=== PATIENT | female | born 1965 | race Caucasian/White ===

== ENCOUNTER 2019-06-17 14:05 | Emergency (ER) | payer BC ==
[2019-06-17 14:24] VITALS: BP 159/95; PULSE 80
--- NOTE | 2019-06-17 15:19 | CR ---
[id number] RAD/RAD Tibia Fibula Right; 2176-0153 RAD/RAD Foot Right 3V Min; [id number] RAD/RAD Ankle Right 3V Min EXAM: RAD Ankle Right 3V Min, RAD Foot Right 3V Min, RAD Tibia Fibula Right INDICATION: INJURY. COMPARISON: None. DISCUSSION: Acute mildly displaced oblique lateral malleolus fracture. Significant soft tissue swelling within the ankle most pronounced anteriorly and laterally. Possible tiny avulsion fracture off the proximal fibular head. No dislocation or other osseous abnormalities identified. IMPRESSION: 1. Acute mildly displaced oblique distal fibula fracture. 2. Possible tiny essentially nondisplaced avulsion fracture off the proximal fibular head. Brown Pantoja MD 06/17/19 1518 Thank you for allowing us to participate in the care of your patient.
--- NOTE | 2019-06-17 15:25 | EDM.PDOC ---
ED HPI GENERAL MEDICAL PROBLEM - General Chief Complaint: Lower Extremity Injury/Pain Stated Complaint: RIGHT ANKLE PAIN Time Seen by Provider: 06/17/19 15:04 Source of Information: Reports: Patient History Limitations: Reports: No Limitations - History of Present Illness INITIAL COMMENTS - FREE TEXT/NARRATIVE: Patient is a 54-year-old female who presents to the emergency department this afternoon via private vehicle with a complaint of right lower extremity pain. Patient states that she was riding a horse in a field close by and the horse fell, landing on her right lower extremity. Patient was able to ambulate approximately quarter mile to her vehicle and drove herself to the emergency department. Upon presentation, patient has edema to right ankle. Patient denies head injury, chest pain, shortness of breath, abdominal pain, back injury or neck injury, hip pain, loss of consciousness, or any other injury. Onset: Today, Sudden Onset Date: 06/17/19 Onset Time: 13:00 Duration: Hour(s): Location: Reports: Lower Extremity, Right Quality: Reports: Ache Severity: Mild Improves with: Reports: None Worsens with: Reports: Movement Context: Reports: Trauma Associated Symptoms: Reports: No Other Symptoms Right Ankle Pain Score (Numeric/FACES): 7 - Related Data Allergies Allergy/AdvReac Type Severity Reaction Status Date / Time Sulfa (Sulfonamide Allergy Cannot Verified 06/17/19 14:17 Antibiotics) Remember Home Meds: Home Meds Rosuvastatin Calcium 10 mg PO DAILY 02/21/18 [History] Venlafaxine HCl [Venlafaxine HCl ER] 75 mg PO DAILY 02/21/18 [History] Diclofenac Sodium 75 mg PO BID 06/17/19 [History] Past Medical History - Past Health History Medical/Surgical History: Denies Medical/Surgical History HEENT History: Reports: Impaired Vision Cardiovascular History: Reports: High Cholesterol Gastrointestinal History: Reports: None Genitourinary History: Reports: None HAM[employer]TER History: Reports: Psychiatric History: Reports: Depression - Infectious Disease History Infectious Disease History: Reports: Chicken Pox - Past Surgical History HEENT Surgical History: Reports: None Cardiovascular Surgical History: Reports: None GI Surgical History: Reports: Colonoscopy Female Surgical History: Reports: Hysterectomy Social & Family History - Tobacco Use Smoking Status *Q: Never Smoker - Caffeine Use Caffeine Use: Reports: Coffee - Recreational Drug Use Recreational Drug Use: No Review of Systems - Review of Systems Review Of Systems: Comprehensive ROS is negative, except as noted in HPI. Constitutional: Reports: No Symptoms Eyes: Reports: No Symptoms Ears: Reports: No Symptoms Nose: Reports: No Symptoms Mouth/Throat: Reports: No Symptoms Respiratory: Reports: No Symptoms Cardiovascular: Reports: No Symptoms GI/Abdominal: Reports: No Symptoms Genitourinary: Reports: No Symptoms Musculoskeletal: Reports: Leg Pain (Right), Joint Swelling Skin: Reports: No Symptoms Neurological: Reports: No Symptoms Psychiatric: Reports: No Symptoms ED EXAM, GENERAL - Physical Exam Exam: See Below Exam Limited By: No Limitations General Appearance: Alert, WD/WN, No Apparent Distress Eye Exam: Bilateral Eye: Normal Inspection Nose: Normal Inspection, No Blood Throat/Mouth: Normal Inspection, Normal Oropharynx, No Airway Compromise Head: Atraumatic, Normocephalic Neck: Normal Inspection, Supple, Non-Tender, Full Range of Motion Respiratory/Chest: No Respiratory Distress, Lungs Clear, Normal Breath Sounds, No Accessory Muscle Use, Chest Non-Tender Cardiovascular: Regular Rate, Rhythm, No Murmur Peripheral Pulses: 2+: Popliteal (L), Popliteal (R), Posterior Tibial (L), Posterior Tibial (R), Dorsalis Pedis (L), Dorsalis Pedis (R) GI/Abdominal: Normal Bowel Sounds, Soft, Non-Tender, No Organomegaly, No Distention, No Abnormal Bruit, No Mass, Pelvis Stable Back Exam: Normal Inspection, Full Range of Motion Extremities: Normal Capillary Refill, Leg Pain (Right lateral malleolus edema without deformity of ankle or foot), Other (No tenderness to palpation of proximal tib-fib or knee) Neurological: Alert, Oriented, CN II-XII Intact, Normal Cognition, No Motor/ Sensory Deficits Psychiatric: Normal Affect, Normal Mood Skin Exam: Warm, Dry, Intact, Normal Color, No Rash Course - Vital Signs Last Recorded V/S: Last Vital Signs Temp 97.1 F 06/17/19 14:19 Pulse 80 06/17/19 14:19 Resp 18 06/17/19 14:19 BP 159/95 H 06/17/19 14:19 Pulse Ox 100 06/17/19 14:19 - Orders/Labs/Meds Orders: Active Orders 24 hr Category Date Time Status Ankle Min 3V Rt [CR] Routine Exams 06/17/19 14:45 Ordered Foot Comp Min 3V Rt [CR] Stat Exams 06/17/19 14:32 Ordered Tibia Fibula Rt [CR] Stat Exams 06/17/19 14:34 Ordered - Radiology Interpretation Free Text/Narrative:: Tib-fib x-ray shows acute oblique distal fibula fracture, and tiny nondisplaced avulsion fracture off proximal fibular head. Remainder of tib-fib, ankle, and foot negative for fracture or dislocation - Re-Assessments/Exams Free Text/Narrative Re-Assessment/Exam: 06/17/19 15:41 Patient afebrile, vital signs stable, discussed orthopedic referral. Patient was placed in a stirrup splint and given crutches with instructions. Patient will follow-up with Dr. Miranda on Wednesday for orthopedic referral Departure - Departure Time of Disposition: 15:47 Disposition: Home, Self-Care 01 Condition: Good Clinical Impression: Fibula fracture Qualifiers: Encounter type: initial encounter Fibula location: distal Fracture type: closed Fracture morphology: unspecified fracture morphology Laterality: right Qualified Code(s): S82.831A - Other fracture of upper and lower end of right fibula, initial encounter for closed fracture - Discharge Information Instructions: Cast or Splint Care, Adult, [id number], Crutch Use, Adult, Easy -to-Read, Fibular Fracture Rehab-SportsMed Referrals: Tran Angela MD [Primary Care Provider] - Additional Instructions: Follow-up with Dr. Miranda on Wednesday for orthopedic referral. Return to emergency department sooner symptoms continue or worsen. Use crutches and avoid weight bearing of right lower extremity. Ice and Motrin for discomfort. Sepsis Event Note - Evaluation Sepsis Screening Result: No Definite Risk - Focused Exam Vital Signs: Vital Signs Temp Pulse Resp BP Pulse Ox 06/17/19 14:19 97.1 F 80 18 159/95 H 100 Date Exam was Performed: 06/17/19 Time Exam was Performed: 15:14 - My Orders Last 24 Hours: My Active Orders 06/17/19 14:32 Foot Comp Min 3V Rt [CR] Stat 06/17/19 14:34 Tibia Fibula Rt [CR] Stat 06/17/19 14:45 Ankle Min 3V Rt [CR] Routine - Assessment/Plan Last 24 Hours: My Active Orders 06/17/19 14:32 Foot Comp Min 3V Rt [CR] Stat 06/17/19 14:34 Tibia Fibula Rt [CR] Stat 06/17/19 14:45 Ankle Min 3V Rt [CR] Routine Assessment:: Fibula fracture Plan: Follow-up with Dr. Miranda on Wednesday for orthopedic referral. Return to emergency department sooner if symptoms continue or worsen
== END 2019-06-17 16:10 | disposition home or self-care (01) ==
LOC: KA.ED 14:05
DX: S82.831A Other fracture of upper and lower end of right fibula, initial encounter for closed fracture (principal); E78.00 Pure hypercholesterolemia, unspecified; F32.9 Major depressive disorder, single episode, unspecified; Z88.2 Allergy status to sulfonamides; Z79.899 Other long term (current) drug therapy; V80.010A Animal-rider injured by fall from or being thrown from horse in noncollision accident, initial encounter
CPT/HCPCS: 29515; 73590-RT; 73610-RT; 73630-RT; 99283-25

== ENCOUNTER 2022-11-29 11:17 | Observation (INO) | payer BC ==
[2022-11-29] MEDS ORDERED: Sodium Chloride 0.9% 10 ML Syringe FLUSH PRN (11:19)
[2022-11-29] MEDS ORDERED: Sodium Chloride 0.9% 1,000 ML IV ONE (11:21)
[2022-11-29 11:27] LABS: BASOPHILS ABSOLUTE AUTO 0.02 10^3/uL (0.00-0.10); BASOPHILS PERCENT AUTO 0.4 % (0.0-1.0); EOSINOPHILS ABSOLUTE AUTO 0.03 10^3/uL (0.10-0.30); EOSINOPHILS PERCENT AUTO 0.6 % (1.0-3.0); HEMATOCRIT 40.7 % (37.0-47.0); HEMOGLOBIN 13.6 g/dL (12.0-16.0); LYMPHOCYTES ABSOLUTE AUTO 2.29 10^3/uL (1.00-4.00); LYMPHOCYTES PERCENT AUTO 42.5 % (20.0-40.0); MEAN CORPUSCULAR HEMOGLOBIN 29.1 pg (27.0-31.0); MEAN CORPUSCULAR HGB CONC 33.4 g/dL (32.0-36.0); MEAN PLATELET VOLUME 9.9 fL (7.4-10.4); MONOCYTES ABSOLUTE AUTO 0.54 10^3/uL (0.10-0.80); NEUTROPHILS ABSOLUTE AUTO 2.51 10^3/uL (2.50-7.00); NEUTROPHILS PERCENT AUTO 46.5 % (50.0-70.0); PLATELET COUNT,PLT 241 10^3/uL (150-400); RED BLOOD CELL COUNT 4.68 10^6/uL (3.80-5.50); RED CELL DISTRIBUTION WIDTH 12.9 % (11.5-14.5); WHITE BLOOD CELL COUNT,WBC 5.39 10^3/uL (5.00-10.00)
[2022-11-29 11:43] LABS: ALANINE AMINOTRANSFERASE,ALT 40 U/L (14-63); ALBUMIN 4.04 g/dL (3.40-5.00); ALKALINE PHOSPHATASE 62 U/L (46-116); ANION GAP 15.5 mmol/L (5-15); ASPARTATE AMNIOTRANSFERASE,AST 53 U/L (15-37); BILIRUBIN TOTAL 0.7 mg/dL (0.2-1.0); BLOOD UREA NITROGEN,BUN 19 mg/dL (7-18); CALCIUM 8.6 mg/dL (8.7-10.3); CARBON DIOXIDE,CO2 23.8 mmol/L (21.0-32.0); CHLORIDE,CL 101 mmol/L (98-107); CREATININE 0.71 mg/dL (0.51-1.17); GLUCOSE RANDOM 113 mg/dL (70-140); POTASSIUM,K 3.3 mmol/L (3.5-5.1); PROTEIN TOTAL,TP 7.3 g/dL (6.4-8.2); SODIUM,NA 137 mmol/L (136-145)
[2022-11-29 11:49] LABS: ESTIMATED GFR 99 mL/min (>=60)
[2022-11-29] MEDS ORDERED: Morphine 2 MG/ML SYRINGE IVPUSH ONE (12:10)
[2022-11-29] MEDS ORDERED: Ondansetron 4 MG/2 ML SDV IVPUSH ONE (12:10)
[2022-11-29] MEDS ORDERED: Morphine 4 MG/ML Syringe IVPUSH ONE (12:51)
[2022-11-29 16:04] LABS: APPEARANCE,URINE CLEAR (CLEAR); BILIRUBIN,URINE NEGATIVE (NEGATIVE); COLOR,URINE YELLOW (YELLOW); GLUCOSE,URINE NEGATIVE (NEGATIVE); KETONES,URINE 40 mg/dL (NEGATIVE); LEUKOCYTE ESTERASE,URINE NEGATIVE (NEGATIVE); NITRITE,URINE NEGATIVE (NEGATIVE); OCCULT BLOOD,URINE LARGE (NEGATIVE); PROTEIN,URINE NEGATIVE (NEGATIVE); UROBILINOGEN,URINE 0.2 E.U./dL (0.2-1.0)
[2022-11-29 16:13] LABS: BACTERIA,URINE RARE /HPF (NONE TO FEW); EPITHELIAL CELLS,URINE RARE /LPF; WBC,URINE 0-5 /HPF (0-5)
[2022-11-29] MEDS ORDERED: Ondansetron 4 MG/2 ML SDV IV PRN (16:39)
[2022-11-29] MEDS ORDERED: Acetaminophen 325 MG Tab PO PRN (16:39)
[2022-11-29] MEDS: predniSONE 20 MG Tab PO SCH (17:14)
[2022-11-29] MEDS: traMADol 50 MG Tab PO PRN ×2 (17:16→23:13)
[2022-11-29] MEDS: Acetaminophen/HYDROcodone 325-10 MG Tab PO PRN (20:18)
[2022-11-29] MEDS ORDERED: traZODone 50 MG Tab PO PRN (21:00)
[2022-11-30] MEDS: Acetaminophen/HYDROcodone 325-10 MG Tab PO PRN (06:25)
[2022-11-30] MEDS: Pantoprazole 40 MG Tab.CR PO SCH ×2 (06:25→06:35)
[2022-11-30] MEDS: predniSONE 20 MG Tab PO SCH (07:55)
== END 2022-11-30 11:33 | disposition home or self-care (01) ==
LOC: KA.ED 11:17 → KA.MS 15:07
PROVIDERS: ADMIT Internal Medicine; ATTEND Internal Medicine
DX: S02.842A Fracture of lateral orbital wall, left side, initial encounter for closed fracture (principal); S02.40FA Zygomatic fracture, left side, initial encounter for closed fracture; S02.40DA Maxillary fracture, left side, initial encounter for closed fracture; S06.0X1A Concussion with loss of consciousness of 30 minutes or less, initial encounter; E78.00 Pure hypercholesterolemia, unspecified; F32.A Depression, unspecified; Z79.52 Long term (current) use of systemic steroids; Z88.2 Allergy status to sulfonamides; W55.12XA Struck by horse, initial encounter
CPT/HCPCS: 70450; 70486; 71045; 72125; 72170; 80053; 81001; 85025; A9270-GY; G0378; J2270; J2405; J7030; J7512; Q3014

== ENCOUNTER 2024-07-03 19:23 | Emergency (ER) | payer BC ==
[2024-07-03] MEDS: Lidocaine 1% 20 ML MDV INJECT ONE (19:39)
== END 2024-07-03 20:00 | disposition home or self-care (01) ==
LOC: KA.ED 19:23
DX: S61.211A Laceration without foreign body of left index finger without damage to nail, initial encounter (principal); Z88.2 Allergy status to sulfonamides; Z79.899 Other long term (current) drug therapy; W26.0XXA Contact with knife, initial encounter; Y93.89 Activity, other specified
CPT/HCPCS: 12001; 99282; J3490